=== PATIENT | male | born 1995 | race American Indian/Alaskan Native ===

== ENCOUNTER 2016-08-11 03:36 | Emergency (ER) | payer MEDICAID ==
--- NOTE | 2016-08-11 03:37 | C.PDOC ---
History Of Present Illness 20 year old male is brought into the ED by his friends s/p a large episode of emesis. Patient was drinking tonight and became intoxicated. He has no complaints at this time. Time Seen by Provider: 08/11/16 03:37 History Per: Patient, Other (Friends) History/Exam Limitations: no limitations Onset/Duration Of Symptoms: Hrs Current Symptoms Are (Timing): Still Present Modifying Factor(s): Alcohol Severity: Mild Past Medical History Reviewed: Historical Data, Nursing Documentation, Vital Signs Vital Signs: Last Vital Signs Temp 98.6 F 08/11/16 03:41 Pulse 58 L 08/11/16 03:41 Resp 20 08/11/16 03:41 BP 122/79 08/11/16 03:41 Pulse Ox 99 08/11/16 05:40 - Medical History PMH: No Chronic Diseases Family History: States: Unknown Family Hx Review Of Systems Constitutional: Positive for: Other (+Intoxicated). Negative for: Fever, Chills Cardiovascular: Negative for: Chest Pain, Palpitations Respiratory: Negative for: Shortness of Breath Gastrointestinal: Positive for: Vomiting Musculoskeletal: Negative for: Neck Pain, Back Pain Physical Exam - Physical Exam Appears: Non-toxic, No Acute Distress, Other (+AOB +Intoxicated) Skin: Warm, Dry Head: Atraumatic, Normacephalic Eye(s): bilateral: Normal Inspection Oral Mucosa: Moist Chest: Symmetrical Cardiovascular: Rhythm Regular Respiratory: No Accessory Muscle Use Extremity: Normal ROM Neurological/Psych: Other (+Responsive) ED Course And Treatment - Laboratory Results Result Diagrams: 08/11/16 04:55 08/11/16 04:55 O2 Sat by Pulse Oximetry: 99 (Room air) Pulse Ox Interpretation: Normal Progress Note: blood work, ivf, zofran Reevaluation Time: 06:35 Reassessment Condition: Improved Disposition Counseled Patient/Family Regarding: Studies Performed, Diagnosis, Need For Followup - Disposition Referrals: [facility] [Outside] Disposition Time: 03:37 Condition: FAIR Prescriptions: Ondansetron ODT [Zofran ODT] 1 odt PO BID PRN #6 odt PRN Reason: Nausea/Vomiting Instructions: Alcohol Intoxication (DC) - Clinical Impression Clinical Impression: Alcohol intoxication - Scribe Statement The provider has reviewed the documentation as recorded by the Scribe Kevin Reza. Provider Attestation: All medical record entries made by the Saul were at my direction and personally dictated by me. I have reviewed the chart and agree that the record accurately reflects my personal performance of the history, physical exam, medical decision making, and the department course for this patient. I have also personally directed, reviewed, and agree with the discharge instructions and disposition.
[2016-08-11 03:45] VITALS: RESP 20; O2SAT 99
[2016-08-11 05:05] LABS: BASO % 0.4 % (0.0-2.0); CHLORIDE 103 mmol/L (98-107); EOS % 0.8 % (0.0-4.0); HEMATOCRIT 48.5 % (35.0-51.0); LYMPH % 17.9 % (20.0-40.0); MEAN CELL VOLUME 80.2 fL (80.0-94.0); MEAN CORPUSCULAR HEMOGLOBIN 27.1 pg (27.0-31.0); MEAN CORPUSCULAR HGB CONC 33.7 g/dL (33.0-37.0); MEAN PLATELET VOLUME 9.8 fL (7.2-11.7); MONO # 0.4 K/uL (0.0-0.8); MONO % 6.5 % (0.0-10.0); NRBC % 0.3 % (0.0-2.0); SODIUM 142 mmol/L (132-148); WHITE BLOOD COUNT 5.5 K/uL (4.8-10.8)
[2016-08-11 05:06] LABS: POTASSIUM 4.3 mmol/L (3.6-5.2)
[2016-08-11 05:08] LABS: ALB/GLOB RATIO 1.5 (1.0-2.1); ALKALINE PHOSPHATASE 75 U/L (38-126); AST/SGOT 28 U/L (17-59); BLOOD UREA NITROGEN 13 mg/dL (9-20); CARBON DIOXIDE 22 mmol/L (22-30); GFR AFRICAN-AMERICAN > 60; TOTAL PROTEIN 8.4 g/dL (6.3-8.3)
[2016-08-11 05:09] LABS: ALCOHOL SERUM 135 mg/dl (0-10); ALT/SGPT 31 U/L (21-72); CALCIUM 9.3 mg/dl (8.6-10.4); GLUCOSE,RANDOM 101 mg/dL (75-110)
[2016-08-11 05:20] LABS: URINE BILIRUBIN NEGATIVE (NEGATIVE); URINE BLOOD NEGATIVE (NEGATIVE); URINE COLOR Yellow (YELLOW); URINE GLUCOSE (UA) NORMAL (Normal); URINE KETONE NEGATIVE (NEGATIVE); URINE LEUKOCYTE ESTERASE NEG Leu/uL (Negative); URINE PROTEIN NEGATIVE (NEGATIVE); URINE UROBILINOGEN NORMAL mg/dL (0.2-1.0); WBC URINE 2 /hpf (0-5)
[2016-08-11] MEDS ORDERED: Sodium Chloride 0.9% 1,000 ML IV ONE (05:23)
[2016-08-11 06:47] VITALS: BP 126/71; PULSE 61; TEMP 97.9
== END 2016-08-11 07:03 | disposition home or self-care (01) ==
LOC: C.ER 03:36
DX: F10.129 Alcohol abuse with intoxication, unspecified (principal); Y90.6 Blood alcohol level of 120-199 mg/100 ml
CPT/HCPCS: 80053; 80320; 80324; 80345; 80346; 80349; 80353; 80358; 80361; 81001; 83992; 85025; 96360; 99284; J7040